=== PATIENT | male | born 1950 | race Caucasian/White ===

== ENCOUNTER 2019-05-04 03:29 | Emergency (ER) | payer OTHER ==
[~2019-05-04] VITALS: Ht 172.7 cm; Wt 89.8 kg
[2019-05-04 03:32] VITALS: Ht 172.7 cm; Wt 89.8 kg
[2019-05-04 05:15] LABS: BASOPHIL % 0.1 % (0-2); PLATELET COUNT 169 x10^3mcL (130-400); RED CELL DISTRIBUTION WIDTH 13.7 % (11.5-14.5)
[2019-05-04 05:20] LABS: CALCIUM 8.4 mg/dL (8.5-10.1); CARBON DIOXIDE 27.1 mmol/L (21-32); CHLORIDE SERUM 105 mmol/L (98-107); CREATININE SERUM 1.1 mg/dL (0.7-1.3); GFR1 > 60 mL/min; GLUCOSE SERUM 216 mg/dL (74-106); POTASSIUM SERUM 3.6 mmol/L (3.5-5.1); SODIUM SERUM 142 mmol/L (136-145)
[2019-05-04 05:24] LABS: ALBUMIN 3.8 g/dL (3.4-5.0); ALKALINE PHOSPHATASE 67 U/L (46-116); ALT/SGPT 20 U/L (16-63); AMYLASE 39 U/L (25-115); AST/SGOT 17 U/L (15-37); BILIRUBIN TOTAL 2.16 mg/dL (0.20-1.00); LIPASE 86 IU/L (73-393); TOTAL PROTEIN, SERUM 7.5 g/dL (6.4-8.2)
[2019-05-04] MEDS ORDERED: NITROGLYCERIN0.4 MG SL (05:38)
[2019-05-04 06:14] VITALS: BP 132/87
== END 2019-05-04 06:14 | disposition home or self-care (01) ==
LOC: ED 03:29
PROVIDERS: Specialist
DX: R19.7 Diarrhea, unspecified (principal); R11.0 Nausea; R10.32 Left lower quadrant pain; R10.31 Right lower quadrant pain
CPT/HCPCS: J1885; J7030